=== PATIENT | female | born 1945 | race Caucasian/White ===

== ENCOUNTER → 2016-05-06 | Outpatient (CLI) | payer BC ==
[~2016-05-06] MED LIST: ALPR-412 PO; AMB10 PO; ASPEC81 PO; ATOR-24 PO; CHOL100010 PO; DULO-24 PO
--- NOTE | 2016-05-06 14:27 | DIAGNOSTIC IMAGING REPORT ---
ULTRASOUND OF THE PELVIS CLINICAL HISTORY: Pelvic pain. COMPARISON STUDY: Pelvic CT dated 01/15/2010. TECHNIQUE: Real-time, grayscale, and color flow sonography of the pelvis is performed both transabdominally and endovaginally. Images are reviewed in the transverse and longitudinal planes. FINDINGS: Uterus: The uterus is normal in size and slightly heterogeneous in echotexture, measuring 7.3 x 3.0 x 3.9 cm. An anterior fibroid measures up to 2.6 cm. Endometrium: The endometrium is normal in appearance, and the endometrial stripe is normal in thickness measuring up to 0.3 cm. Ovaries: The ovaries were not visualized on the transabdominal or endovaginal imaging. Pelvis: There is no free fluid in the cul-de-sac. No concerning adnexal lesion is seen. IMPRESSION: 1. No acute sonographic abnormality is identified in the pelvis. 2. Fibroid uterus. 3. The ovaries were not visualized. No concerning adnexal lesion was seen. Electronically signed by: Yaakov Vega M.D. 05/06/2016 2:26 PM Dictated Date/Time: 05/06/2016 2:23 PM
== END | disposition home or self-care (01) ==
LOC: C.ULTR 13:27
PROVIDERS: ATTEND Internal Medicine
DX: D25.9 Leiomyoma of uterus, unspecified (principal)

== ENCOUNTER → 2016-10-23 | Outpatient (CLI) | payer BC ==
--- NOTE | 2016-10-26 12:37 | MAMMOGRAPHY REPORT ---
BILATERAL DIGITAL SCREENING MAMMOGRAM TOMOSYNTHESIS WITH CAD: 10/23/2016 TECHNIQUE: Breast tomosynthesis in addition to standard 2D mammography was performed. Current study was also evaluated with a Computer Aided Detection (CAD) system. COMPARISON: Comparison is made to exams dated: 10/17/2014 mammogram, 10/16/2013 mammogram, 10/13/2012 m ammogram, 10/12/2011 mammogram, 10/08/2010 mammogram, and 10/07/2009 mammogram - [facility] enter. BREAST COMPOSITION: There are scattered areas of fibroglandular density in both breasts. FINDINGS: No suspicious masses, calcifications, or areas of architectural distortion are noted in ei ther breast. There has been no significant interval change compared to prior exams. There are stable postsurgical changes in the right breast from prior lumpectomy. There is a stable asymmetry seen al govind the posterior nipple line in the right breast on the MLO view middle depth which appears similar to the 2010 exam and is considered benign given long-term stability. IMPRESSION: ACR BI-RADS CATEGORY 2: BENIGN There is no mammographic evidence of malignancy. A 1 year screening mammogram is recommended. The pa tient will receive written notification of the results. Approximately 10% of breast cancers are not detected with mammography. A negative mammographic report should not delay biopsy if a clinically suggestive mass is present. Gretchen Stinson M.D. /:10/23/2016 15:33:29 [employer] Supervisor: Vangie AVELAR(Bry)(Miguel), [facility] letter sent: Normal 1/2 BI-RADS Code: ACR BI-RADS Category 2: Benign
== END | disposition home or self-care (01) ==
LOC: C.MAMM 13:50
PROVIDERS: ATTEND Internal Medicine
DX: Z12.31 Encounter for screening mammogram for malignant neoplasm of breast (principal); Z85.9 Personal history of malignant neoplasm, unspecified

== ENCOUNTER → 2017-06-10 | Outpatient (CLI) | payer BC ==
[2017-06-10 09:36] LABS: BASO % 0.4 %; BASO ABS # 0.02 K/uL (0-0.2); EOS ABS # 0.11 K/uL (0-0.5); HEMATOCRIT 43.5 % (37-47); HEMOGLOBIN 15.3 g/dL (12.0-16.0); LYMPH ABS # 1.85 K/uL (1.2-3.4); MEAN CELL VOLUME 93.1 fL (80-100); MEAN CORPUSCULAR HEMOGLOBIN 32.8 pg (25-34); MEAN CORPUSCULAR HGB CONC 35.2 g/dl (32-36); MEAN PLATELET VOLUME 10.3 fL (7.4-10.4); MONO % 7.7 %; MONO ABS # 0.43 K/uL (0.11-0.59); NEUT % 55.1 %; PLATELET COUNT 202 K/uL (130-400); WHITE BLOOD COUNT 5.61 K/uL (4.8-10.8)
== END | disposition home or self-care (01) ==
LOC: C.LAB1850 08:01
PROVIDERS: ATTEND Internal Medicine
DX: I10 Essential (primary) hypertension (principal)

== ENCOUNTER → 2017-06-18 | Outpatient (CLI) | payer BC | END | disposition home or self-care (01) | LOC: C.RDSM 19:02 | PROVIDERS: ATTEND Orthopaedic Surgery | DX: R52 Pain, unspecified (principal) ==